=== PATIENT | male | born 1965 | race Caucasian/White ===

== ENCOUNTER 2017-05-21 14:42 | Emergency (ER) | payer MEDICAID, OTHER ==
[2017-05-21] MEDS ORDERED: Sodium Chloride 0.9% 1,000 ML IV ONE (15:33)
[2017-05-21 16:12] LABS: BASO # 0.1 K/uL (0.0-0.2); BASO % 0.8 % (0.0-2.0); EOS # 0.3 K/uL (0.0-0.7); LYMPH # 1.5 K/uL (1.0-4.3); LYMPH % 15.2 % (20.0-40.0); MEAN CELL VOLUME 78.7 fL (80.0-94.0); MEAN CORPUSCULAR HEMOGLOBIN 27.2 pg (27.0-31.0); MEAN CORPUSCULAR HGB CONC 34.5 g/dL (33.0-37.0); MEAN PLATELET VOLUME 8.4 fL (7.2-11.7); MONO # 0.8 K/uL (0.0-0.8); MONO % 8.4 % (0.0-10.0); RED CELL DISTRIBUTION WIDTH 13.1 % (11.5-14.5); WHITE BLOOD COUNT 9.6 K/uL (4.8-10.8)
[2017-05-21 16:25] LABS: ALB/GLOB RATIO 1.2 (1.0-2.1); ALKALINE PHOSPHATASE 54 U/L (38-126); ALT/SGPT 30 U/L (21-72); AST/SGOT 18 U/L (17-59); BILIRUBIN,TOTAL 0.7 mg/dL (0.2-1.3); BLOOD UREA NITROGEN 18 mg/dL (9-20); CALCIUM 9.3 mg/dl (8.6-10.4); CARBON DIOXIDE 27 mmol/L (22-30); CHLORIDE 99 mmol/L (98-107); GFR AFRICAN-AMERICAN > 60; GLUCOSE,RANDOM 252 mg/dL (75-110); POTASSIUM 4.5 mmol/L (3.6-5.2); SODIUM 137 mmol/L (132-148); TOTAL PROTEIN 7.1 g/dL (6.3-8.3)
[2017-05-21 17:24] VITALS: PULSE 75; TEMP 98.6
--- NOTE | 2017-05-21 18:16 | C.PDOC ---
History Of Present Illness 51 year old male presents to the ED with complaints of sternal discomfort and cough beginning yesterday. Patient also notes wide spread myalgia in bilateral thighs and arms. He has a surgical history of sternal repair after an accident and takes 20 mg of Pravastatin for myalgia. Patient denies fever, chills, nausea , vomiting, or shortness of breath. Time Seen by Provider: 05/21/17 15:26 Chief Complaint (Nursing): Chest Pain History Per: Patient History/Exam Limitations: no limitations Onset/Duration Of Symptoms: Hrs (of chest discomfort ), Persistent (myalgia for 2 weeks to thighs and arms ) Current Symptoms Are (Timing): Still Present Associated Symptoms: Other (non-productive cough ). denies: Fever, Chills Recent travel outside of the [place]: No Past Medical History Reviewed: Historical Data, Nursing Documentation, Vital Signs Vital Signs: Last Vital Signs Temp 98.6 F 05/21/17 14:55 Pulse 75 05/21/17 18:49 Resp 16 05/21/17 18:49 BP 117/70 05/21/17 18:49 Pulse Ox 98 05/21/17 18:49 - Medical History PMH: Diabetes, HTN, Hypercholesterolemia Family History: States: Unknown Family Hx - Social History Hx Tobacco Use: No Hx Alcohol Use: Yes Hx Substance Use: No - Immunization History Hx Tetanus Toxoid Vaccination: No Hx Influenza Vaccination: No Hx Pneumococcal Vaccination: No Review Of Systems Constitutional: Negative for: Fever, Chills Cardiovascular: Positive for: Chest Pain (sternal discomfort ). Negative for: Palpitations Respiratory: Positive for: Cough. Negative for: Shortness of Breath Gastrointestinal: Negative for: Nausea, Vomiting, Abdominal Pain, Diarrhea Musculoskeletal: Positive for: Other (widespread myalgia ) Neurological: Negative for: Weakness, Numbness Physical Exam - Physical Exam Appears: Non-toxic, No Acute Distress Skin: Warm, Dry Head: Atraumatic Eye(s): bilateral: Normal Inspection Oral Mucosa: Moist Neck: Supple Chest: Deformity (concave sternum, chronic yk deformity. ), Other (no rash ) Cardiovascular: Rhythm Regular, No Murmur Respiratory: Normal Breath Sounds, No Rales, No Rhonchi, No Wheezing Gastrointestinal/Abdominal: Soft, No Tenderness, No Distention, No Guarding, No Rebound Extremity: Normal ROM, Tenderness (mild tenderness to bilateral thigh muscles ) , No Pedal Edema, No Calf Tenderness, Capillary Refill (good capillary refill, less than two seconds ), No Swelling Neurological/Psych: Oriented x3 ED Course And Treatment - Laboratory Results Result Diagrams: 05/21/17 16:06 05/21/17 16:06 Lab Interpretation: Abnormal (mild elev glu, CPK 67 wnl) ECG: Interpreted By Me ECG Rhythm: Sinus Rhythm ECG Interpretation: Normal Rate From EC O2 Sat by Pulse Oximetry: 96 (room air ) Pulse Ox Interpretation: Normal Progress Note: IVF, Motrin PO Reevaluation Time: 18:10 Reassessment Condition: Improved Medical Decision Making Medical Decision Making: myalgias, prob related to Pravastatin 20 mg daily for past 6 months normal CPK 67, no rhabdo Advised to d/c and f/u with PMD to reassess Disposition Doctor Will See Patient In The: Office Counseled Patient/Family Regarding: Studies Performed, Diagnosis - Disposition Referrals: María Lincoln MD [Medical Doctor] - Disposition: HOME/ ROUTINE Disposition Time: 18:16 Condition: GOOD Additional Instructions: ZHENG de edgar el Pravastatin 20 mg Aveces se provoca molestias de los musculos Examenes de la estela/higado normal CPK 67 normal Sigue con Dra Lincoln para considerar re-empesando OTRO medicamento para el cholesterol elevado. Instructions: Musculoskeletal Pain (ED) Forms: [employer] (Slovak) Print Language: BELARUSIAN - Clinical Impression Clinical Impression: Myalgia due to HMG CoA reductase inhibitor - Scribe Statement The provider has reviewed the documentation as recorded by the Scribe Geovanna Segal All medical record entries made by the Scribe were at my direction and personally dictated by me. I have reviewed the chart and agree that the record accurately reflects my personal performance of the history, physical exam, medical decision making, and the department course for this patient. I have also personally directed, reviewed, and agree with the discharge instructions and disposition.
[2017-05-21 18:49] VITALS: BP 117/70; RESP 16
[2017-05-21 21:16] VITALS: O2SAT 96
--- NOTE | 2017-05-24 22:38 | CARD ---
APPROVED REPORT EKG Measurement Heart [id number] <Conclusion> Normal sinus rhythm Normal ECG
== END 2017-05-21 18:50 | disposition home or self-care (01) ==
LOC: C.ER 14:42
DX: M79.1 Myalgia (principal); T46.6X5A Adverse effect of antihyperlipidemic and antiarteriosclerotic drugs, initial encounter; Y92.89 Other specified places as the place of occurrence of the external cause; I10 Essential (primary) hypertension; E11.9 Type 2 diabetes mellitus without complications
CPT/HCPCS: 80053; 82550; 85025; 96360; 99285; J7040

== ENCOUNTER 2017-08-23 15:59 | Emergency (ER) | payer MEDICAID ==
[2017-08-23 16:10] VITALS: BP 100/65; PULSE 82; RESP 18; TEMP 98.2; O2SAT 97
--- NOTE | 2017-08-23 16:27 | C.PDOC ---
History Of Present Illness 51 yo male w/PMHx of HTN, NIDDM come in for evaluation of Left elbow and Right shoulder pain intermittent for past 4 months, worsen for past few weeks. Pt reports, pain is localized, worse with movement. Otherwise, pt denies known trauma or injury, fever, chills, headache, dizziness, neck pain, CP, SOB, dyspnea, diaphoresis, palpitation, denies deformity, skin changes, weakness, sensory or vascular deficits to B?L UEs. Ambulate to ED for evaluation, not in any apparent distress. Time Seen by Provider: 08/23/17 16:18 Chief Complaint (Nursing): Upper Extremity Problem/Injury History Per: Patient History/Exam Limitations: no limitations Onset/Duration Of Symptoms: Intermittent Episodes (4 months) Current Symptoms Are (Timing): Still Present Past Medical History Reviewed: Historical Data, Nursing Documentation, Vital Signs Vital Signs: Last Vital Signs Temp 98.2 F 08/23/17 16:06 Pulse 82 08/23/17 16:06 Resp 18 08/23/17 16:06 BP 100/65 08/23/17 16:06 Pulse Ox 97 08/23/17 16:46 - Medical History PMH: Diabetes, HTN, Hypercholesterolemia Family History: States: No Known Family Hx - Social History Hx Tobacco Use: No Hx Alcohol Use: Yes Hx Substance Use: No - Immunization History Hx Tetanus Toxoid Vaccination: No Hx Influenza Vaccination: Yes Hx Pneumococcal Vaccination: No Review Of Systems Except As Marked, All Systems Reviewed And Found Negative. Constitutional: Negative for: Fever, Chills Cardiovascular: Negative for: Chest Pain, Palpitations Respiratory: Negative for: Shortness of Breath Musculoskeletal: Positive for: Shoulder Pain (Right shoulder), Other ((+) Left elbow pain). Negative for: Neck Pain Skin: Negative for: Rash, Lesions Neurological: Negative for: Headache, Dizziness Physical Exam - Physical Exam Appears: Well, Non-toxic, No Acute Distress Skin: Normal Color, Warm, Dry, No Rash, No Ecchymosis Head: Normacephalic Eye(s): bilateral: PERRL Nose: No Flaring Oral Mucosa: Moist Throat: No Erythema, No Drooling Neck: Supple Cardiovascular: Rhythm Regular, No JVD, Other ((-) carotid bruits B/L) Respiratory: No Decreased Breath Sounds, No Accessory Muscle Use, No Stridor, No Wheezing Gastrointestinal/Abdominal: Soft, No Tenderness Extremity: Normal ROM (B/L UEs), Tenderness (mild tenderness over lateral aspect Left elbow and superior aspect Right shoulder. FAROM of B/L UEs, no neurovascular deficits.), Capillary Refill (less than 2sec to B/L UEs.), No Deformity, No Swelling Neurological/Psych: Oriented x3, Normal Speech, Normal Motor, Normal Sensation, Normal Reflexes ED Course And Treatment O2 Sat by Pulse Oximetry: 97 (RA) Pulse Ox Interpretation: Normal - Other Rad X-Ray - Right Shoulder X-Ray: Viewed By Me Interpretation: (-) ACUTE FX OR DISLOCATION X-Ray - Left Elbow X-Ray: Viewed By Me Interpretation: (-) ACUTE FX OR DISLOCATION Progress Note: On re-evalution, pt is afebrile, hemodynamicaly stable. Non- toxic. Neck: Supple, (-)JVD. CVS: (+)S1S2, reg. Lungs: CTA B/L, BS equal B/ L. B/L UEs: exam c/w left elbow tendonitis and Right shoulder sprain. neuorlogicaly intact. Imaging review and appears normal. Pt has clinical findings c/w elbow tendonitis, shoulder sprain. pt advised. ref. to F/u with PMD, rtho in 2 -3 days for re-eval. return to ED if any new changes. Medical Decision Making Medical Decision Making: PLAN: * X-Ray - Right Shoulder, Left Elbow * Tramadol PO Disposition Counseled Patient/Family Regarding: Studies Performed, Diagnosis, Need For Followup, Rx Given - Disposition Referrals: María Lincoln MD [Medical Doctor] - Disposition: HOME/ ROUTINE Disposition Time: 16:43 Condition: STABLE Additional Instructions: ROMERO WRAP OR BRACE TO LEFT ELBOW FOR 2-3 WEEKS LIGHT DUTY TO PAINFUL JOINTS TAKE MEDICATION PRESCRIBED FOR APIN FOLLOW UP WITH PMD, ORTHOPEDIST IN 2-3 DAYS FOR RE-EVALUATION. RETURN TO ED IF ANY WORSENING OR NEW CHANGES. Prescriptions: Prednisone [Deltasone] 40 mg PO DAILY #6 tablet traMADol [Ultram] 50 mg PO TID #7 tab Instructions: Elbow Sprain (ED), Shoulder Sprain (ED), Tenosynovitis (ED) Forms: [employer] (Kazakh) Print Language: AMERICAN - Clinical Impression Clinical Impression: Elbow tendonitis, Shoulder sprain - PA / ORDER EDITOR / Resident Statement MD/DO has reviewed & agrees with the documentation as recorded. - Scribe Statement The provider has reviewed the documentation as recorded by the Scribe Kamila Rubi All medical record entries made by the Sheribbill were at my direction and personally dictated by me. I have reviewed the chart and agree that the record accurately reflects my personal performance of the history, physical exam, medical decision making, and the department course for this patient. I have also personally directed, reviewed, and agree with the discharge instructions and disposition.
--- NOTE | 2017-08-23 17:22 | RAD ---
PROCEDURE: Radiographs of the Right Shoulder HISTORY: pain COMPARISON: None available. FINDINGS: BONES: No acute displaced fracture. The distal clavicle and underlying ribs appear intact. JOINTS: No acute dislocation. Glenohumeral joint space narrowing. SOFT TISSUES: Soft tissues appear unremarkable. No evidence of radiopaque foreign body. IMPRESSION: No acute displaced fracture or dislocation evident. If symptoms persist or if there is continued clinical concern, x-ray follow-up in 7-10 days should be considered.
--- NOTE | 2017-08-23 17:27 | RAD ---
PROCEDURE: Radiographs of the left elbow. HISTORY: pain COMPARISON: None available. FINDINGS: BONES: No acute displaced fracture. JOINTS: No dislocation. SOFT TISSUES: Unremarkable. No evidence of radiopaque foreign body. JOINT EFFUSION: No significant joint effusion. OTHER FINDINGS: None IMPRESSION: No acute displaced fracture, dislocation, or significant joint effusion identified. If symptoms persist, or if there is continued clinical concern, x-ray follow-up in 7-10 days should be considered.
== END 2017-08-23 17:37 | disposition home or self-care (01) ==
LOC: C.ER 15:59
DX: M77.9 Enthesopathy, unspecified (principal); S43.401A Unspecified sprain of right shoulder joint, initial encounter; X58.XXXA Exposure to other specified factors, initial encounter; E11.9 Type 2 diabetes mellitus without complications; I10 Essential (primary) hypertension; E78.00 Pure hypercholesterolemia, unspecified

== ENCOUNTER 2018-01-16 14:01 | Emergency (ER) | payer MEDICAID ==
[2018-01-16 14:21] VITALS: TEMP 98.2; O2SAT 98
[2018-01-16] MEDS ORDERED: Tmp-Smz 800 mg-160 mg DS Tab PO STA (14:40)
[2018-01-16] MEDS ORDERED: Tmp-Smz 800 mg-160 mg DS Tab ONE (14:48)
--- NOTE | 2018-01-16 14:58 | C.PDOC ---
History Of Present Illness Patient with history of DM presents to ED with c/o of worsening ingrown toe nail to left great toe for 1 week. Patient states he has history of same episode for 2 years and is already following up with technologist infectious disease but today pain was worse to toe which prompted visit to ED. Patient denies fever, drainage or any other complaints at this time. Time Seen by Provider: 01/16/18 14:03 Chief Complaint (Nursing): Lower Extremity Problem/Injury History Per: Patient History/Exam Limitations: no limitations Onset/Duration Of Symptoms: Days Current Symptoms Are (Timing): Still Present Past Medical History Reviewed: Historical Data, Nursing Documentation, Vital Signs Vital Signs: Last Vital Signs Temp 98.2 F 01/16/18 14:19 Pulse 68 01/16/18 15:30 Resp 18 01/16/18 15:30 BP 121/65 01/16/18 15:30 Pulse Ox 98 01/16/18 15:30 - Medical History PMH: Diabetes, HTN, Hypercholesterolemia Surgical History: No Surg Hx Family History: States: No Known Family Hx - Social History Hx Tobacco Use: No Hx Alcohol Use: Yes Hx Substance Use: No - Immunization History Hx Tetanus Toxoid Vaccination: No Hx Influenza Vaccination: Yes Hx Pneumococcal Vaccination: No Review Of Systems Constitutional: Negative for: Fever, Chills Cardiovascular: Negative for: Chest Pain Musculoskeletal: Positive for: Foot Pain (toe) Skin: Negative for: Rash Neurological: Negative for: Weakness, Numbness Physical Exam - Physical Exam Appears: Non-toxic, No Acute Distress Skin: Warm, Dry, No Rash Head: Atraumatic, Normacephalic Eye(s): bilateral: Normal Inspection Oral Mucosa: Moist Extremity: Capillary Refill (<2 seconds), No Deformity, Swelling (minimal to left great toe), Other (left great toe minimal erythema and ingrown toe nail noted) Neurological/Psych: Oriented x3, Normal Motor, Normal Sensation ED Course And Treatment O2 Sat by Pulse Oximetry: 98 (RA) Pulse Ox Interpretation: Normal Medical Decision Making Medical Decision Making: Patient reports that he was going to see his [employer] License[employer] Dr. Hassan but couldnt because he needs "pre-authorization" which he did not do. Patient already had the nail cut into by the [employer] and there is no fluctuance to be drained at this time. Patient was placed on antibiotics and was told to follow up with his [employer]. Disposition - Disposition Referrals: Guy Hassan DPM [Doctor Podiatric Medicine] - Disposition: HOME/ ROUTINE Disposition Time: 15:28 Condition: STABLE Additional Instructions: Follow up with the [employer] Licensee within 1-2 days without fail. Return if worsened. Prescriptions: Cephalexin [Keflex] 500 mg PO BID #19 capsule Ibuprofen [Motrin] 1 tab PO TID PRN #30 tab PRN Reason: Pain Sulfamethoxazole/Trimethoprim [Bactrim DS 800 mg-160 mg] 1 tab PO BID #14 tab Instructions: Ingrown Toenail (DC) Forms: [employer] (Japanese) - Clinical Impression Clinical Impression: Ingrown toenail - PA / HEALTH SCIENCES MANAGER / Resident Statement MD/DO has reviewed & agrees with the documentation as recorded. - Scribe Statement The provider has reviewed the documentation as recorded by the Scribbill Mendoza All medical record entries made by the Sheribbill were at my direction and personally dictated by me. I have reviewed the chart and agree that the record accurately reflects my personal performance of the history, physical exam, medical decision making, and the department course for this patient. I have also personally directed, reviewed, and agree with the discharge instructions and disposition.
[2018-01-16 15:31] VITALS: BP 121/65; PULSE 68; RESP 18
== END 2018-01-16 15:44 | disposition home or self-care (01) ==
LOC: C.ER 14:01
DX: L60.0 Ingrowing nail (principal)

== ENCOUNTER 2018-12-20 19:04 | Emergency (ER) | payer MEDICAID ==
[2018-12-20 19:21] VITALS: BP 126/75; PULSE 80; RESP 14; TEMP 98.6; O2SAT 98
--- NOTE | 2018-12-20 20:25 | C.PDOC ---
History Of Present Illness 53 year old male presents to the ED c/o itchy rash to his nose and cheeks since this morning. Patient denies fever, chills, itchy eyes, SOB, wheezing, nasal congestion, throat swelling, feeling of throat closing. Time Seen by Provider: 12/20/18 19:57 Chief Complaint (Nursing): ENT Problem History Per: Patient History/Exam Limitations: None Onset/Duration Of Symptoms: Hrs Current Symptoms Are (Timing): Still Present Severity: None Anticoagulant/Antiplatlet Use?: No Recent Aspirin Use: No Past Medical History Reviewed: Historical Data, Nursing Documentation, Vital Signs Vital Signs: Last Vital Signs Temp 98.6 F 12/20/18 19:18 Pulse 80 12/20/18 19:18 Resp 14 12/20/18 19:18 BP 126/75 12/20/18 19:18 Pulse Ox 98 12/20/18 19:18 - Medical History PMH: Diabetes, HTN, Hypercholesterolemia Surgical History: No Surg Hx Family History: States: Unknown Family Hx - Social History Hx Tobacco Use: No Hx Alcohol Use: Yes Hx Substance Use: No - Immunization History Hx Tetanus Toxoid Vaccination: No Hx Influenza Vaccination: Yes Hx Pneumococcal Vaccination: No Review Of Systems Constitutional: Negative for: Fever, Chills, Weakness Eyes: Negative for: Redness, Other (scleral icterus) ENT: Negative for: Mouth Swelling Cardiovascular: Negative for: Chest Pain Respiratory: Negative for: Cough, Shortness of Breath Gastrointestinal: Negative for: Nausea, Vomiting, Diarrhea Musculoskeletal: Negative for: Back Pain Skin: Positive for: Rash Neurological: Negative for: Weakness, Numbness, Dizziness Physical Exam - Physical Exam Appears: Non-toxic, No Acute Distress Skin: Normal Color, Warm, Rash (erythematous rash over nose and cheeks. Excoriations due to scratching) Head: Atraumatic, Normacephalic Eye(s): bilateral: Normal Inspection (no scleral icterus), PERRL, EOMI Ear(s): Bilateral: Normal (no drainage) Nose: Normal Oral Mucosa: Moist Throat: Normal (no swelling or injection), No Exudate, Other (airway patent) Neck: Normal ROM, Supple Chest: Symmetrical Respiratory: No Accessory Muscle Use, Other (normal inspiratory effort) Gait: Steady ED Course And Treatment O2 Sat by Pulse Oximetry: 98 (On RA) Pulse Ox Interpretation: Normal Medical Decision Making Medical Decision Making: Plan: * Benadryl 25 mg PO Patient given antihistamines in the ED, advised to follow up with clinic/PMD Disposition Counseled Patient/Family Regarding: Diagnosis, Need For Followup, Rx Given - Disposition Disposition: HOME/ ROUTINE Disposition Time: 20:21 Condition: STABLE Prescriptions: Cetirizine HCl [Wal-Zyr] 10 mg PO BID #14 capsule Diphenhydramine HCl/Zinc Acet [Benadryl Itch Stopping Crm] 2 gm TP TID #28 cream..g. Instructions: Contact Dermatitis (DC) Forms: [employer] (Peruvian), Gen Discharge Inst Peruvian - Clinical Impression Clinical Impression: Allergic dermatitis - PA / STAVE BLOCK ROLLER / Resident Statement MD/DO has reviewed & agrees with the documentation as recorded. - Scribe Statement The provider has reviewed the documentation as recorded by the Scribe Nas Alegre All medical record entries made by the Scribe were at my direction and personally dictated by me. I have reviewed the chart and agree that the record accurately reflects my personal performance of the history, physical exam, medical decision making, and the department course for this patient. I have also personally directed, reviewed, and agree with the discharge instructions and disposition.
== END 2018-12-20 20:45 | disposition home or self-care (01) ==
LOC: C.ER 19:04
DX: L23.9 Allergic contact dermatitis, unspecified cause (principal); I10 Essential (primary) hypertension; E78.00 Pure hypercholesterolemia, unspecified; E11.9 Type 2 diabetes mellitus without complications